=== PATIENT | female | born 1985 | race Caucasian/White ===

== ENCOUNTER 2017-02-05 08:05 | Inpatient (IN) | payer MEDICAID ==
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
[~2017-02-05 08:05] MED LIST: IBUPROFEN800 MG PO
[2017-02-06 04:38] LABS: HEMATOCRIT 37.3 % (35.0-45.0); HEMOGLOBIN 12.2 gm/dL (12.0-16.0)
[2017-02-07 03:32] LABS: HEMATOCRIT 34.4 % (35.0-45.0); HEMOGLOBIN 11.3 gm/dL (12.0-16.0)
[2017-02-08] MEDS ORDERED: XARELTO10 MG PO (08:59)
[2017-02-08] MEDS ORDERED: PERCOCET5/325 PO (09:00)
== END 2017-02-08 09:52 | disposition home or self-care (01) | DRG 494 ==
LOC: CSUR 08:05 → CPACUOF 10:15 → CSUR 12:30 → CPACUOF 14:00 → C4B 14:00 → CPACUOF 17:45 → C4B 02-08 09:52
PROVIDERS: Orthopaedic Surgery
PROC: 0QBP0ZZ Excision of Left Metatarsal, Open Approach (ICD-10-PCS; 2017-02-05)
PROC: [UNRECOGNIZED PROCEDURE] (principal; 2017-02-05 10:00)
PROC: 0L8 Tendons, Division (ICD-10-PCS; 2017-02-05 10:00)
PROC: 0Q8M0ZZ Division of Left Tarsal, Open Approach (ICD-10-PCS; 2017-02-05 10:00)
PROC: 0LXW0ZZ Transfer Left Foot Tendon, Open Approach (ICD-10-PCS; 2017-02-05 10:00)
PROC: 0LXP0ZZ Transfer Left Lower Leg Tendon, Open Approach (ICD-10-PCS; 2017-02-05 10:00)
DX: M19.072 Primary osteoarthritis, left ankle and foot (principal); M67.874 Other specified disorders of tendon, left ankle and foot; Q66.1 Congenital talipes calcaneovarus
CPT/HCPCS: 85014; 85018; 94010; 94760; 97116; 97161; 97530; C1713; J0690; J1170; J2250; J2270; J2550; J2795; J3010; J3370